=== PATIENT | male | born 1960 | race American Indian/Alaskan Native ===

== ENCOUNTER 2020-08-23 14:16 | Emergency (ER) | payer MEDICARE, MEDICAID ==
--- NOTE | 2020-08-23 14:31 | Event Note ---
ED Screening Note ED Screening Note: Patient presents for shortness of breath and intermittent leg swelling History of cardiac stents and bypass of the lower extremities This initial assessment/diagnostic orders/clinical plan/treatment(s) is/are subject to change based on patients health status, clinical progression and re- assessment by fellow clinical providers in the ED. Further treatment and workup at subsequent clinical providers discretion. Patient/guardian urged not to elope from the ED as their condition may be serious if not clinically assessed and managed. Initial orders include: labs, xr, ekg MAIN ED eval
[2020-08-23 14:55] LABS: Basophils # (Auto) 0.1 K/mm3 (0.0-0.1); Basophils % (Auto) 1.3 % (0.0-1.8); Eosinophils # (Auto) 0.4 K/mm3 (0.0-0.4); Hematocrit 39.9 % (35.5-45.6); Hemoglobin 14.2 gm/dl (11.8-15.2); Lymphocytes # (Auto) 3.2 K/mm3 (1.2-5.4); Lymphocytes % (Auto) 41.7 % (13.4-35.0); Mean Corpuscular HGB Conc 36 % (32-34); Mean Corpuscular Volume 94 fl (84-94); Monocytes # (Auto) 0.4 K/mm3 (0.0-0.8); Monocytes % (Auto) 5.7 % (0.0-7.3); Platelet Count 262 K/mm3 (140-440); Red Blood Count 4.26 M/mm3 (3.65-5.03); Red Cell Distribution Width 13.1 % (13.2-15.2)
--- NOTE | 2020-08-23 14:58 | XRay Report ---
CHEST 2 VIEWS INDICATION: SOB. COMPARISON: none FINDINGS: Support devices: None. Heart: Within normal limits. Lungs: No acute air space or interstitial disease. Pleura: No significant pleural effusion. No pneumothorax. Additional findings: None. IMPRESSION: 1. No acute findings. Signer Name: Sid Monteiro MD Signed: 08/23/2020 2:53 PM Workstation Name: [id number]
[2020-08-23 15:05] LABS: INR 0.78 (0.87-1.13)
[2020-08-23 15:06] LABS: Partial Thromboplastin Time 22.4 Sec. (24.2-36.6)
[2020-08-23 15:21] LABS: Alanine Aminotransferase 23 units/L (7-56); Albumin 3.6 g/dL (3.9-5); BUN/Creatinine Ratio 24; Blood Urea Nitrogen 24 mg/dL (9-20); Hemolysis Index 14
--- NOTE | 2020-08-23 16:26 | Emergency Department Report ---
HPI - General Chief Complaint: Dyspnea/Respdistress Time Seen by Provider: 08/23/20 14:30 - HPI HPI: This is a 60-year-old -[place]one[place] male presents to the emergency department with the complaint of having some intermittent left groin and thigh pain. This is concerning to him as he has a history of previous lower extremity stents placed, in [place], secondary to some type of peripheral arterial disease. The patient says that he feels like his left leg will intermittently become cold. This worsens with exertion. Sometimes it is associated with some exertional shortness of breath. Patient denies any swelling of the lower extremities, skin color change, chest pain, fever, nausea, vomiting. The patient also has a history of hypertension, insulin-dependent diabetes, coronary artery disease with cardiac stents. The patient has not taken anything for his symptoms prior to presentation. He does not have a primary care physician or vascular physician that he follows up with locally. ED Past Medical Hx - Past Medical History Previous Medical History?: Yes Hx Heart Attack/AMI: Yes (2 stents) Hx Diabetes: Yes - Surgical History Past Surgical History?: Yes Hx Coronary Stent: Yes (2) Additional Surgical History: AAA bilateral legs with 2 stents - Social History Smoking Status: Never Smoker Substance Use Type: None - Medications Home Medications: Home Medications Medication Instructions Recorded Confirmed Last Taken Type Aspirin EC [Halfprin EC] 81 mg PO QDAY #20 tablet. 08/23/20 Unknown Rx Syringe & Needle,Insulin,1 ml 1 each MC PRN PRN #1 box 08/23/20 Unknown Rx [Ultra Comfort] ED Review of Systems ROS: Stated complaint: SOB/BIPASS Other details as noted in HPI Comment: All other systems reviewed and negative Constitutional: denies: chills, fever Eyes: denies: eye pain, vision change ENT: denies: ear pain, throat pain Respiratory: SOB with exertion (Intermittent, none currently). denies: cough Cardiovascular: denies: chest pain, edema Gastrointestinal: denies: abdominal pain, vomiting Genitourinary: denies: dysuria, discharge Musculoskeletal: arthralgia, myalgia Skin: denies: rash, change in color Neurological: numbness (Intermittent left foot numbness). denies: weakness Physical Exam - Physical Exam Vital Signs: Vital Signs 08/23/20 08/23/20 14:26 15:00 Temperature 98.6 F Pulse Rate 97 H 86 Respiratory 18 Rate Blood Pressure 141/82 Blood Pressure 135/82 [Left] O2 Sat by Pulse 96 98 Oximetry Physical Exam: GENERAL: The patient is well-developed well-nourished. HENT: Normocephalic. Atraumatic. Patient has moist mucous membranes. EYES: Extraocular motions are intact. NECK: Supple. Trachea is midline. CHEST/LUNGS: Clear to auscultation. There is no respiratory distress noted. HEART/CARDIOVASCULAR: Regular. There is no tachycardia. There is no murmur. ABDOMEN: Abdomen is soft, nontender. Patient has normal bowel sounds. There is no abdominal distention. SKIN: Skin is warm and dry. NEURO: The patient is awake, alert, and oriented. The patient is cooperative. The patient has no focal neurologic deficits. Normal speech. MUSCULOSKELETAL: There is no tenderness or deformity. There is no limitation range of motion. Capillary refill less than 2 seconds to the bilateral lower extremities. +2/4 femoral pulse bilaterally. Dorsi plantar flexion muscle strength 5 out of 5 bilaterally. ED Course Vital Signs 08/23/20 08/23/20 14:26 15:00 Temperature 98.6 F Pulse Rate 97 H 86 Respiratory 18 Rate Blood Pressure 141/82 Blood Pressure 135/82 [Left] O2 Sat by Pulse 96 98 Oximetry - Consultations Consultation #1: 08/23/20 19:18 I spoke with the vascular surgeon on-call, Dr. Jaret Johnson, regarding the venous Doppler ultrasound findings of an occluded superficial femoral artery stent. Given the patient's intermittent symptoms and evidence of collateral arterial flow, Dr. Johnson feels that this is more of a subacute or chronic issue and would be best treated in his clinic. The patient is already on Plavix so he recommends the patient continue on the Plavix and possibly add a baby aspirin. He has asked for the patient to call the office for an appointment on . ED Medical Decision Making - Lab Data Result diagrams: 08/23/20 14:46 08/23/20 14:46 Lab Results 08/23/20 08/23/20 08/23/20 Range/Units 14:46 14:46 14:46 WBC 7.8 (4.5-11.0) K/mm3 RBC 4.26 (3.65-5.03) M/mm3 Hgb 14.2 (11.8-15.2) gm/dl Hct 39.9 (35.5-45.6) % MCV 94 (84-94) fl MCH 33 H (28-32) pg MCHC 36 H (32-34) % RDW 13.1 L (13.2-15.2) % Plt Count 262 (140-440) K/mm3 Lymph % (Auto) 41.7 H (13.4-35.0) % Alfalfa % (Auto) 5.7 (0.0-7.3) % Eos % (Auto) 5.0 H (0.0-4.3) % Baso % (Auto) 1.3 (0.0-1.8) % Lymph # (Auto) 3.2 (1.2-5.4) K/mm3 Alfalfa # (Auto) 0.4 (0.0-0.8) K/mm3 Eos # (Auto) 0.4 (0.0-0.4) K/mm3 Baso # (Auto) 0.1 (0.0-0.1) K/mm3 Seg Neutrophils % 46.3 (40.0-70.0) % Seg Neutrophils # 3.6 (1.8-7.7) K/mm3 PT 10.7 L (12.2-14.9) Sec. INR 0.78 L (0.87-1.13) APTT 22.4 L (24.2-36.6) Sec. Sodium 135 L (137-145) mmol/L Potassium 5.1 H (3.6-5.0) mmol/L Chloride 99.3 (98-107) mmol/L Carbon Dioxide 26 (22-30) mmol/L Anion Gap 15 mmol/L BUN 24 H (9-20) mg/dL Creatinine 1.0 (0.8-1.3) mg/dL Estimated GFR > 60 ml/min BUN/Creatinine Ratio 24 % Glucose 289 H (75-100) mg/dL Calcium 9.0 (8.4-10.2) mg/dL Total Bilirubin < 0.20 (0.1-1.2) mg/dL AST 21 (5-40) units/L ALT 23 (7-56) units/L Alkaline Phosphatase 123 (35-129) units/L Troponin T < 0.010 (0.00-0.029) ng/mL NT-Pro-B Natriuret Pep 479.1 (0-900) pg/mL Total Protein 6.7 (6.3-8.2) g/dL Albumin 3.6 L (3.9-5) g/dL Albumin/Globulin Ratio 1.2 % - EKG Data -: EKG Interpreted by Me EKG shows normal: sinus rhythm, axis, intervals, QRS complexes, ST-T waves (T wave inversions to the inferior lateral leads) Rate: normal - EKG Data When compared to previous EKG there are: previous EKG unavailable Interpretation: other (Sinus rhythm at 70 bpm, normal axis, normal intervals. T wave inversions to the inferolateral leads. No ST elevation OK.) - Radiology Data Radiology results: report reviewed DUPLEX DOPPLER LOWER EXTREMITY VEINS, LEFT INDICATION: LLE pain. TECHNIQUE: Duplex doppler imaging was performed through the veins of the left lower extremity using venous compression and other maneuvers. COMPARISON: None available. FINDINGS: Common femoral vein: Negative. Superficial femoral vein: Negative. Popliteal vein: Negative. Calf veins: Negative. Additional findings: Incidental note is made of a visualized stent in the superficial femoral artery which appears occluded. No visible flow is identified within the stent. = IMPRESSION: 1. No sonographic evidence for DVT in the left lower extremity. 2. The left SFA stent appears to be occluded. - Medical Decision Making This patient presents to the emergency department with a complaint of having a 3 to 4-week history of some intermittent pain towards the left upper thigh and groin, as well as feeling that his left foot gets cold and numb. On examination the patient has full muscle strength to the bilateral lower extremities. There is a palpable femoral pulse bilaterally. Capillary refill is less than 2 seconds. The skin does not appear cyanotic or dusky. I was unable to palpate his dorsalis pedis pulse. However, I was able to use the bedside ultrasound to both visualize the dorsalis pedis artery and here the pulse, showing good distal flow. The patient's heart and lungs are normal to auscultation. Chest x-ray does not show any pneumonia, pleural effusions, pneumothorax. Patient's vital signs have been reassuring throughout his ED course. Patient's labs have been mostly unremarkable. The patient did have some hyperglycemia but does not appear to be in diabetic ketoacidosis as there is no elevation in the anion gap. I sent the patient for a left lower extremity venous Doppler ultrasound to rule out DVT. There was no evidence of DVT but they incidentally found what appears to be an occlusion of the stent in the left superficial femoral artery. I spoke to the vascular surgeon on-call as per the consultation section. The patient is already on Plavix and I will add a prescription for a baby aspirin. The patient has been given the referral for [facility] vascular [place] and has been told to make an appointment in the next few days for outpatient follow-up. In the meantime, the patient understands to return to the closest emergency department with any worsening of his symptoms, or with any acute distress. All the patient's questions have been answered and he understands and agrees to the plan. Critical Care Time: No Critical care attestation.: If time is entered above; I have spent that time in minutes in the direct care of this critically ill patient, excluding procedure time. ED Disposition Clinical Impression: Superficial femoral artery occlusion, Intermittent pain Diabetes mellitus Qualifiers: Diabetes mellitus type: type 1 Diabetes mellitus complication status: with hyperglycemia Qualified Code(s): E10.65 - Type 1 diabetes mellitus with hyperglycemia Disposition: DC-01 TO HOME OR SELFCARE Is pt being admited?: No Condition: Stable Instructions: Atherosclerosis, Hyperglycemia, Diabetes Mellitus Type 2 in Adults (ED) Additional Instructions: I have given you a referral for a vascular surgeon, Dr. Jaret Johnson. Please call tomorrow for an appointment for this week. I have also given you a referral for local primary care physicians and a primary care clinic. Take all of your medications as prescribed including and especially your Plavix. I am prescribing you a baby aspirin. Return to the closest emergency department with any worsening of your symptoms, increased pain in the leg or foot, skin color changes, or with any acute distress. Prescriptions: Aspirin EC [Halfprin EC] 81 mg PO QDAY #20 tablet. Syringe & Needle,Insulin,1 ml [Ultra Comfort] 1 each MC PRN PRN #1 box PRN Reason: Hyperglycemia Referrals: JARET JOHNSON MD [Staff Physician] - 3-5 Days (Call tomorrow for an appointment ) JARET TOVAR MD [Staff Physician] - 3-5 Days [facility] [Provider Group] - 3-5 Days Time of Disposition: 19:51
[2020-08-23 18:33] VITALS: BP 133/98
--- NOTE | 2020-08-23 18:38 | Vascular Lab Report ---
DUPLEX DOPPLER LOWER EXTREMITY VEINS, LEFT INDICATION: LLE pain. TECHNIQUE: Duplex doppler imaging was performed through the veins of the left lower extremity using venous compr ession and other maneuvers. COMPARISON: None available. FINDINGS: Common femoral vein: Negative. Superficial femoral vein: Negative. Popliteal vein: Negative. Calf veins: Negative. Additional findings: Incidental note is made of a visualized stent in the superficial femoral artery which appears occluded. No visible flow is identified within the stent. = IMPRESSION: 1. No sonographic evidence for DVT in the left lower extremity. 2. The left SFA stent appears to be occluded. Signer Name: Shyla Cowart MD Signed: 08/23/2020 6:33 PM Workstation Name: [id number]
--- NOTE | 2020-08-24 09:22 | Electrocardiograph Report ---
[facility] Test Date: 2020-08-23 Test Time: 14:32:34 Pat Name: RICA STRONG Department: Room: Gender: M Compliance Administrator: MICHELINE : [id number] Requested By: JUAN DANIEL LENTZ Order Number: [id number] Reading MD: Brain Zamorano Measurements Intervals [place] Rate: 70 P: 54 [place]: 175 QRS: 70 QRSD: 92 T: 261 QT: 372 QTc: 401 Interpretive Statements Sinus rhythm Abnormal T, consider ischemia, diffuse leads No previous ECG available for comparison Electronically Signed On 08-24-2020 6:22:02 PDT by Brain Zamorano
== END 2020-08-23 20:35 | disposition home or self-care (01) ==
LOC: ED 14:16
DX: I70.8 Atherosclerosis of other arteries (principal); E11.9 Type 2 diabetes mellitus without complications; M79.652 Pain in left thigh; I25.2 Old myocardial infarction; Z98.890 Other specified postprocedural states; Z79.899 Other long term (current) drug therapy
CPT/HCPCS: 36415; 71046; 80053; 83880; 84484; 85025; 85610; 85730; 93005

== ENCOUNTER 2021-03-26 08:52 | Day surgery (SDC) | payer MEDICARE ==
[2021-03-26] MEDS ORDERED: HEPARIN/NS 5000 UNIT/500ML 1,000 ML IR ONE (09:34)
[2021-03-26] MEDS ORDERED: VERAPAMIL 5 MG/2 ML INJ ONE (09:34)
[2021-03-26] MEDS ORDERED: HEPARIN 10,000 UNITS/10 ML VIAL ONE (09:34)
[2021-03-26] MEDS ORDERED: LIDOCAINE (2%) 20 MG/1 ML VIAL 20 ML MDV INFILTRATI ONE ×2 (09:35→10:45)
[2021-03-26] MEDS ORDERED: NITROGLYCERIN SYRINGE 3 ML ONE (09:35)
[2021-03-26 09:38] LABS: Hematocrit 37.1 % (35.5-45.6); Hemoglobin 12.6 gm/dl (11.8-15.2); Mean Corpuscular HGB Conc 34 % (32-34); Mean Corpuscular Volume 94 fl (84-94); Platelet Count 249 K/mm3 (140-440); Red Blood Count 3.97 M/mm3 (3.65-5.03); Red Cell Distribution Width 14.2 % (13.2-15.2)
[2021-03-26 09:49] LABS: INR 0.78 (0.87-1.13)
[2021-03-26 09:51] LABS: BUN/Creatinine Ratio 17; Blood Urea Nitrogen 15 mg/dL (9-20); Calcium 8.8 mg/dL (8.4-10.2); Hemolysis Index 2
[2021-03-26] MEDS ORDERED: SODIUM CHLORIDE 0.9% 500 ML 500 ML IV SCH (10:00)
[2021-03-26] MEDS ORDERED: ceFAZolin/STERILE WATER 2 GM/20 ML SYRINGE IV NR (10:00)
[2021-03-26] MEDS ORDERED: MIDAZOLAM 2 MG/2 ML INJ ONE (10:21)
[2021-03-26] MEDS ORDERED: fentaNYL 100 MCG/2 ML INJ ONE (10:21)
[2021-03-26] MEDS ORDERED: ceFAZolin/Water 2 GM/20 ML 2 GM/20 ML SYRINGE IV ONE (10:31)
[2021-03-26] MEDS ORDERED: ceFAZolin/STERILE WATER 2 GM/20 ML SYRINGE IV ONE (10:33)
[2021-03-26] MEDS ORDERED: fentaNYL 100 MCG/2 ML INJ IV ONE ×2 (10:48→11:08)
[2021-03-26] MEDS ORDERED: MIDAZOLAM 2 MG/2 ML INJ IV ONE (10:48)
[2021-03-26] MEDS ORDERED: VERAPAMIL 5 MG/2 ML INJ IV ONE (10:49)
[2021-03-26] MEDS ORDERED: HEPARIN 10,000 UNITS/10 ML VIAL IV ONE ×2 (10:49→11:05)
[2021-03-26] MEDS ORDERED: NITROGLYCERIN 600 MCG/3 ML SYRINGE UD ONE ×2 (10:49)
--- NOTE | 2021-03-26 12:37 | Short Stay Summary ---
Short Stay Documentation Date of service: 03/26/21 Narrative H&P: See H&P - History H&P: obtained from office - Allergies and Medications Current Medications: Allergies No Known Allergies Allergy (Unverified 08/23/20 14:31) Home Medications Medication Instructions Recorded Confirmed Last Taken Type Aspirin EC [Halfprin EC] 81 mg PO QDAY #20 tablet. 08/23/20 03/26/21 03/25/21 Rx Clopidogrel [Plavix] 75 mg PO QDAY 03/26/21 03/26/21 03/25/21 History Lantus VIAL 14 units SQ QHS 03/26/21 03/26/21 03/25/21 History amLODIPine [Norvasc] 5 mg PO DAILY 03/26/21 03/26/21 03/25/21 History cilostazoL [Pletal] 50 mg PO BID 03/26/21 03/26/21 03/25/21 History lisinopriL [Zestril TAB] 40 mg PO QDAY 03/26/21 03/26/21 03/26/21 History metFORMIN [Glucophage] 500 mg PO BID 03/26/21 03/26/21 1 Week Ago History ~03/19/21 Active Medications Cefazolin Sodium (Cefazolin/Sterile Water 2 Gm/20 Ml Syringe) 2 gm IV PREOP NR Stop: 03/26/21 21:00 Sodium Chloride (Nacl 0.9% 500 Ml) 500 mls @ 50 mls/hr IV DIRECT AGUSTINA Stop: 03/26/21 20:00 - Brief post op/procedure progress note Date of procedure: 03/26/21 Pre-op diagnosis: Peripheral Vascular Disease With Erectile Dysfunction Post-op diagnosis: same Procedure: 1. Ultrasound-Guided Access Left Radial Artery 2. Diagnostic Right Lower Extremity Angiogram 3. Diagnostic Selective Right Internal Iliac Angiogram 4. Angioplasty and Stent of Right Internal Iliac Artery 5 x 80 IN.PACT Drug-Coated Balloon In the Proximal Artery and 5 x 30 and 5 x 20 Medtronic Resolute [place] Drug-Eluting Stents In the Distal Artery 5. Radiologic Supervision with Interpretation 6. Monitored Moderate Sedation (Total Anesthesia Time: 82 Minutes) Anesthesia: local, other (Monitored Moderate Sedation) Surgeon: FRANCISCO RODRIGUEZ Estimated blood loss: minimal Pathology: none Condition: stable - Disposition Condition at discharge: Good Disposition: 01 HOME / SELF CARE / HOMELESS Short Stay Discharge Plan Activity: other (No heavy lifting or strenuous activity with left hand for 24 hours.) Wound: remove dressing (In 24 hours) Special Instructions: hold Metformin (48 hours) Follow up with: FRANCISCO RODRIGUEZ MD [Staff Physician] - 14 Days
--- NOTE | 2021-03-26 13:03 | Operative Report ---
Operative Report Operative Report: Date of Procedure: 03/26/2021 Pre-operative Diagnosis: Peripheral Vascular Disease with Erectile Dysfunction Post-operative Diagnosis: Same Procedure(s): 1. Ultrasound-Guided Access Left Radial Artery 2. Diagnostic Right Lower Extremity Angiogram 3. Diagnostic Selective Right Internal Iliac Angiogram 4. Angioplasty and Stent of Right Internal Iliac Artery 5 x 80 IN.PACT Drug- Coated Balloon In the Proximal Artery and 5 x 30 and 5 x 20 Medtronic Resolute [place] Drug-Eluting Stents In the Distal Artery 5. Radiologic Supervision with Interpretation 6. Monitored Moderate Sedation (Total Anesthesia Time: 82 Minutes) Surgeon: Jaret Johnson M.D. Kiln Furniture Caster: None Anesthesia: Local/Monitored Moderate Sedation Total Anesthesia Time: 82 Minutes EBL: Minimal Counts: Correct Complications: None Condition: Stable Specimen: None Indication: The patient is a 60-year-old male with a history of peripheral vascular disease and previous stent grafts placed in his left iliac artery that occluded his left hypogastric artery. He complains of erectile dysfunction and is in need of an angiogram involving his right internal iliac artery to possibly improve flow. He was given the risk, benefits, and alternative procedures and consented to the procedure. Angiographic Findings: The diagnostic angiogram revealed that the right common iliac artery was patent with no flow-limiting stenosis. The right external iliac artery was patent without flow-limiting stenosis. There was approximately 85% stenosis of the origin of the right hypogastric artery. There was approximately 95% stenosis of the mid and distal common trunk of the hypogastric artery with flow noted in the distal branches. After intervention there was less than 10% residual stenosis within the common trunk of the hypogastric artery with brisk flow of contrast into all distal branches. Description of Procedure: The patient was brought to the [facility] and laid in supine position. Prior to being transported to the [facility] he had an Tereso's test that demonstrated he was ulnar dominant in his left arm. After a timeout was performed he was adequately sedated and his left upper extremity was prepped and draped in normal sterile fashion. Ultrasound was used to identify the left radial artery and confirm patency. Once patency was confirmed the overlying skin and soft tissue was anesthetized with lidocaine and a 21-gauge micropuncture needle was used to access the artery under ultrasound guidance. A 0.018 micropuncture wire was advanced to the artery and after removing the needle a 6 [place] glide slender sheath was placed by Seldinger technique. A radial cocktail was then administered to reduce spasm. A 0.035 advantage Glidewire and Navicross catheter were advanced into the thoracic aorta and used to cannulate the descending aorta. The catheter and wire were then advanced into the right common iliac artery and a diagnostic right lower extremity angiogram was performed the previously described findings. The catheter and wire were then used to cannulate the hypogastric artery and were used to cross the area of stenosis and into the distal branches. I then remove the glide slender sheath and placed a 6 Gib[place]tarian 105 cm destination sheath by Seldinger technique. At this point the patient was systemically heparinized with an additional 2000 units of heparin IV. I readvanced the Navicross catheter into the distal branches and exchanged the advantage wire for 0.014 Spartacore Wire and performed angioplasty of the hypogastric artery using a 4 x 100 Teto Balloon with a result of approximately 75% residual stenosis. I attempted to perform angioplasty with an Angiosculpt Balloon however I was unable to advance the balloon across the areas of stenosis. I advanced the Navicross back into the hypogastric artery and exchanged the Spartacore Wire for a 0.035 Amplatz Wire and performed angioplasty of the proximal portion of the artery using a 5 x 80 IN.PACT Drug-Coated Balloon which resulted in less than 10% residual stenosis. I was unable to advance the balloon into the distal portion of the artery secondary to the severe stenosis. I readvanced the Navicross into the artery and injected 500 mcg of nitroglycerin and then exchanged the Amplatz wire for the Spartacore Wire. I then advanced a 5.0 x 30 mm Medtronic Resolute [place] Drug-Eluting Stent into the distal portion of the artery and inflated it to nominal pressure with a result of less than 10% residual stenosis. I advanced a 5.0 x 22 mm Medtronic Resolute [place] Drug- Eluting Stent, with slight overlap into the distal stent, and deployed it with a result of less than 10% residual stenosis. At this point I removed the [place] Wire and then advanced the glide advantage wire into the external iliac artery. I reinserted the dilator into the sheath and removed over the wire and then replaced the 6 Gib[place] 11 cm glide slender sheath. I removed the glide advantage wire and then placed a pressure dressing on the radial artery entry site after removing the sheath. The patient tolerated the procedure well and was transported to the recovery area in stable condition.
[2021-03-26 15:40] VITALS: BP 151/72
== END 2021-03-26 08:53 | disposition home or self-care (01) ==
LOC: CATHLABREC 08:52
PROVIDERS: ATTEND Surgery Vascular Surgery
DX: I70.211 Atherosclerosis of native arteries of extremities with intermittent claudication, right leg (principal); Z79.82 Long term (current) use of aspirin; Z79.899 Other long term (current) drug therapy; Z98.890 Other specified postprocedural states
CPT/HCPCS: 36415; 37221; 75710; 76937; 80048; 85027; 85610; 99156; 99157; C1725; C1769; C1874; C1887; C1894; C2623; J0690; J1644; J2250; J3010; J7040; Q9967